=== PATIENT | male | born 1960 | race Caucasian/White ===

== ENCOUNTER 2022-06-02 08:55 | Outpatient (CLI) | payer OTHER, SELFPAY | END 2022-06-02 08:56 | disposition home or self-care (01) | LOC: LKVREF 08:57 | PROVIDERS: PCP Physician Assistant Medical; Visit Provider Physician Assistant Medical | DX: Z00.00 Encounter for general adult medical examination without abnormal findings (principal); E78.5 Hyperlipidemia, unspecified; I10 Essential (primary) hypertension; R73.09 Other abnormal glucose; E66.9 Obesity, unspecified | CPT/HCPCS: 82043; 82570 ==

== ENCOUNTER 2022-06-07 08:50 | Outpatient (CLI) | payer OTHER, SELFPAY ==
[2022-06-07 13:44] LABS: Albumin* 4.3 g/dL (3.3-5.0)
[2022-06-07 13:45] LABS: Chloride* 103 mmol/L (96-114); Potassium* 4.2 mmol/L (3.6-5.1); Sodium* 140 mmol/L (135-149)
[2022-06-07 13:47] LABS: Aspartate Amino Transferase* 34 U/L (12-35); Blood Urea Nitrogen* 16 mg/dL (7-30); Carbon Dioxide* 30 mmol/L (20-32); Cholesterol* 165 mg/dL (90-199); Estimated Glomerular Filt Rate 87 ml/min; Total Protein* 7.7 g/dL (6.0-8.3)
[2022-06-07 13:48] LABS: Alanine Aminotransferase* 47 U/L (4-50); Alkaline Phosphatase* 93 U/L (40-150); Calcium* 9.3 mg/dL (8.4-10.6); Glucose* 108 mg/dL (60-115); HDL Cholesterol* 32 mg/dL (>=40); LDL Cholesterol Calculated 98 mg/dL (<100); Triglycerides* 176 mg/dL (40-149)
[2022-06-07 14:16] LABS: PSA Screen* 2.94 ng/mL (0.10-4.00)
== END 2022-06-07 08:51 | disposition home or self-care (01) ==
PROVIDERS: PCP Physician Assistant Medical; Visit Provider Physician Assistant Medical
DX: Z00.00 Encounter for general adult medical examination without abnormal findings (principal); E78.5 Hyperlipidemia, unspecified; I10 Essential (primary) hypertension; Z12.5 Encounter for screening for malignant neoplasm of prostate; Z13.6 Encounter for screening for cardiovascular disorders
CPT/HCPCS: 80053; 80061; 84153

== ENCOUNTER 2022-10-04 10:02 | Outpatient (CLI) | payer OTHER, SELFPAY ==
--- NOTE | 2022-10-04 12:14 | W.ANESCHARGE ---
Anesthesia Charges Start Date/Time Anesthesia Start Date: 10/04/22 Anesthesia Start Time: 11:39 Stop Date/Time Anesthesia Stop Date: 10/04/22 Anesthesia Stop Time: 12:11
--- NOTE | 2022-10-04 12:26 | W.ANESCHARGE ---
Anesthesia Charges Start Date/Time Anesthesia Start Date: 10/04/22 Anesthesia Start Time: 11:39 Stop Date/Time Anesthesia Stop Date: 10/04/22 Anesthesia Stop Time: 12:11
== END 2022-10-04 10:03 | disposition home or self-care (01) ==
PROVIDERS: PCP Physician Assistant Medical; Visit Provider Surgery
DX: Z12.11 Encounter for screening for malignant neoplasm of colon (principal); K63.5 Polyp of colon; Z86.010 Personal history of colon polyps
CPT/HCPCS: 00811; 45380; 88305; J2704

== ENCOUNTER 2023-06-14 09:18 | Outpatient (CLI) | payer OTHER, SELFPAY ==
--- OUTSIDE RECORDS SUMMARY | 2023-06-21 16:34 | XMS_ITS | Clinical Summary ---
Author Name Unknown Organization [email or web address] Address [place], [place] [address] Care Team Providers Care Tower Attendant Name Role Phone [facility] - Primary Care Provider Allergies Active Allergy Reactions Criticality Noted Date Comments Codeine *Unknown 09/26/2022 Social History Tobacco Use Types Packs/Day Years Used Date Smoking Tobacco: Never Assessed Sex and Gender Information Value Date Recorded Sex Assigned at Not on file Gender Identity Not on file Sexual Orientation Not on file Plan of Treatment Health Maintenance Due Date Last Done Comments Tdap 1973 Depression screening for age 12+ 1974 HIV for age 15-65 1977 BMI (ht and wt on same day) for age 18+ 1980 Hepatitis C screening for ag e 18-79 1980 Tetanus booster 1982 Colonoscopy through age 75 08/18/2007 Lipids for age 45-75 08/18/2007 Zoster (shingles) series for age 50+ (1 of 2) 2012 COVID-19 vaccine series (2022-24 season) 2023 06/18/2021, 09/19/2020, 08/29/2020 Influenza for age 50-64 02/10/2023 Pneumococcal series for age 6-64 Aged Out No longer eligible b ased on patient's age to complete this topic Care Teams Tower Attendant Relationship Specialty Start Date End Date Jaxson Cosme [facility] - [id number] [facility] [place] [id number] PCP - General 09/26/22
--- OUTSIDE RECORDS SUMMARY | 2023-06-21 16:34 | XMS_ITS | Data Portability ---
Author Name Unknown Address [address] [place] [address] Phone [phone] Organization [facility] Address [address] [place] [address] Assessment No assessment recorded. Plan of Treatment Reminders Order Date Submit Date Provider Last Modified By Organization Details Last Modified Time Details Appointments None record ed. Lab None record ed. Referral None record ed. Procedures None record ed. Surgeries None record ed. Imaging None record ed. Medication Orders None record ed. Patient TargetsNo targets recorded. Patient Instructions Encounter Date Encounter Id Patient Instructions Last Modified By Organization Details Last Modified Time 09/06/2022 [id number] will set up for cysto in OR possible urethral dilation. [email or web address] Not available 09/06/2022 11:54:20 Reason for Referral None Reported. Procedures Surgical History Date Name Laterality Status Provider Name and Address Organization Details Recorded Time 8 Colonoscopy completed Adriana pelayo [facility] 09/06/2022 11:23:50 Imaging Results None recorded. Procedure Notes None recorded. Medical Equipment None Reported. Allergies Allergen ID Allergen Name Allergen Category Reaction Reaction Severity Criticality Documentation Date Start Date Code Code System Note Provider Name and Address Organization Details Recorded Time [id number] codeine medicatio n Not available Not available Not available 09/06/2022 2670 RxNorm Adriana pelayo [facility] 11:20:32 Medications Name Sig Start Date Stop Date Status Note LastModified by Organization Details LastModified Time atorvastati n 10 mg tablet TAKE 1 TABLET BY MOUTH ONCE DAILY FOR CHOLESTER OL active Not Available Not Available No t Available valacyclovi r 1 gram tablet TAKE ONE TABLET BY MOUTH THREE TIMES DAILY 09/06 completed Not Available Not Available Not Available losartan 100 mg-hydrochl orothiazide 25 mg tablet TAKE 1 TABLET BY MOUTH EVERY DAY BP GOAL LESS THAN 130/80 ONCE DAILY FOR BLOOD PRESSURE active Not Available Not Available No t Available gabapentin 300 mg capsule PLEASE SEE ATTACHED FOR DETAILED DIRECTION S 09/06 completed Not Available Not Available Not Available losartan 100 mg-hydrochl orothiazide 12.5 mg tablet TAKE 1 TABLET BY MOUTH EVERY DAY 09/06 completed Not Available Not Available Not Available Multi Vitamin active Not Available Not Available Not Available Quick[employer]ue At-Home COVID-19 Test kit FOLLOW PACKAGE DIRECTION S 09/06 completed Not Available Not Available Not Available Vitals Date Recorded Body height Body mass index (BMI) Body weight Provider Name and Address Organization Details Last Updated DateTime 09/06/2022 177.8 cm 38 kg/m2 610015.[address] [facility] 09/06/2022 11:19:48 Social History Question Answer Notes LastModified by Organizat ion Details LastModified Time Tobacco Smoking Status Former Smoker CEAS[facility] 09/06/2022 11:22:37 What Is Your Level Of Alcohol Consumption? Occasional [email or web address] Information not available 09/06/2022 What Is Your Level Of Caffeine Consumption? Moderate [email or web address] Information not available 09/06/2022 When Did You Quit Smoking? 16+yearssincel astcigarette [email or web address] Information not available 09/06/2022 What Was The Date Of Your Most Recent Tobacco Screening? 09/06/2022 [email or web address] Information not available 09/06/2022 Do You Use Any Illicit Or Recreational Drugs? No [email or web address] Information not available 09/06/2022 Sex: Male Functional Status None recorded. Mental Status None recorded. Family History Relationship Description Onset Age of this Age Resolved Age Notes Maternal Grandfather Family history of prostate cancer Maternal Grandfather Family history of diabetes mellitus Father Family history of cancer Medical History Condition Response High Blood Pressure Y High Cholesterol Y Past Encounters Encounter ID Performer Location Encounter Start Date Encounter Closed Date Diagnosis/Indication [id number] Adriana [facility] [address] [place] [id number] 09/06/2022 10:50:22 09/09/2022 19:28:52 Painful ejaculation Health Concerns Section Related Observation LastModified by Organization Detai ls LastModified Time None Recorded Concern Status LastModified by Organization Details LastModified Time None Recorded Advance Directives Directive None Recorded Payers Encounter Date Sequence Insurance Name Policy Number Policy Champion Covered Member ID Champion Member ID Guarantor Name 09/06/2022 1 [employer] - [employer] ([employer]) [employer] Rashad Power Jose [id number] Rashad Tono Jose Notes Date Note Type Note Provider Name and Address Organization Details Recorded Time 09/06/2022 text/html HPI Notes: had painful ejaculation about 6 months ago, had some gelatin like inclusions in the semen at the time. since then notices light discomfort with ejaculations. urine stream good, possible slight dysuria. does note some chronic spraying of the stream. no CaP in family. CE[facility] [facility] 09/06/2022 11:56:10
== END 2023-06-14 09:19 | disposition home or self-care (01) ==
LOC: NFLDREF 06-21 16:33
PROVIDERS: PCP Physician Assistant Medical; Referring Provider Physician Assistant Medical; Visit Provider Physician Assistant Medical
DX: Z00.00 Encounter for general adult medical examination without abnormal findings (principal); R73.09 Other abnormal glucose; I10 Essential (primary) hypertension; E78.5 Hyperlipidemia, unspecified; J18.9 Pneumonia, unspecified organism; E66.9 Obesity, unspecified; Z12.5 Encounter for screening for malignant neoplasm of prostate; Z13.1 Encounter for screening for diabetes mellitus; Z13.6 Encounter for screening for cardiovascular disorders
CPT/HCPCS: 80061; G0103

== ENCOUNTER 2024-10-08 08:16 | Outpatient (CLI) | payer OTHER, SELFPAY | END 2024-10-08 08:17 | disposition home or self-care (01) | LOC: NFLDREF 10-09 00:50 | PROVIDERS: PCP Physician Assistant Medical; Referring Provider Physician Assistant Medical; Visit Provider Physician Assistant Medical | DX: Z00.01 Encounter for general adult medical examination with abnormal findings (principal); I10 Essential (primary) hypertension; E78.5 Hyperlipidemia, unspecified; Z12.5 Encounter for screening for malignant neoplasm of prostate | CPT/HCPCS: 80053; 80061; 84443; G0103 ==